=== PATIENT | female | born 1965 | race Caucasian/White ===

== ENCOUNTER → 2018-09-09 | Outpatient (CLI) | payer BC | LOC: MC.RAD 11:02 | DX: Z12.31 Encounter for screening mammogram for malignant neoplasm of breast (principal) ==

== ENCOUNTER 2019-07-11 09:01 | Emergency (ER) | payer BC ==
[~2019-07-11] VITALS: Ht 160 cm; Wt 52.3 kg
[2019-07-11 09:07] VITALS: TEMP 97.7
[2019-07-11 10:01] LABS: ALANINE AMINOTRANSFERASE 58 U/L (9-52); ALBUMIN 4.3 gm/dL (3.5-5.0); ALKALINE PHOSPHATASE 81 U/L (50-136); ANION GAP 9 mmol/L (7-16); AST,SGOT 58 U/L (15-37); BILIRUBIN,TOTAL 0.5 mg/dL (0.0-1.0); BLOOD UREA NITROGEN 8 mg/dL (7-17); CALCIUM 9.6 mg/dL (8.4-10.2); CARBON DIOXIDE 27 mmol/L (22-30); CHLORIDE 106 mmol/L (98-107); CREATINE KINASE 80 U/L (30-135); CREATININE, serum 0.73 (0.52-1.25); GLUCOSE 108 mg/dL (74-106); MAGNESIUM 2.1 mg/dL (1.6-2.3); PHOSPHOROUS 3.4 mg/dL (2.5-4.5); POTASSIUM 3.7 mmol/L (3.4-5.0); SODIUM 141 mmol/L (137-145); TOTAL PROTEIN 6.9 gm/dL (6.4-8.2)
[2019-07-11 10:06] LABS: BASO % 0.3 % (0.0-2.0); EOS # 0.1 (0.0-0.7); EOS % 0.8 % (0-4.0); GRAN # 4.4 (1.4-6.5); GRAN % 70.8 % (42.2-75.2); HEMATOCRIT 44.4 % (37.0-47.0); HEMOGLOBIN 15.3 g/dl (12.5-16.0); LYMPH # 1.2 (1.2-3.4); LYMPH % 19.9 % (20.0-51.0); MEAN CELL VOLUME 90 fl (80.0-100.0); MEAN CORPUSCULAR HEMOGLOBIN 31 pg (27.0-31.0); MEAN CORPUSCULAR HGB CONC 35 g/dl (33.0-37.0); MEAN PLATELET VOLUME 12.4 fl (7.4-10.4); MONO # 0.5 (0.1-0.6); MONO % 7.9 % (1.7-9.3); PLATELET COUNT 190 K/mm3 (130-400); RED BLOOD COUNT 4.92 M/mm3 (4.10-5.30); REDCELL DISTRIBUTION WIDTH-CV 11.6 % (11.5-14.5)
[2019-07-11 10:09] LABS: C-REACTIVE PROTEIN < 0.5 mg/dL (0.0-0.9)
[2019-07-11] MEDS ORDERED: FLEXERIL 1010 MG/TAB PO (11:27)
[2019-07-11 11:34] VITALS: BP 145/93; PULSE 72
== END 2019-07-11 11:41 | disposition home or self-care (01) ==
LOC: COL.ER 09:01
PROVIDERS: Emergency Medicine
DX: R20.0 Anesthesia of skin (principal); Z90.710 Acquired absence of both cervix and uterus; Z90.89 Acquired absence of other organs; Z90.49 Acquired absence of other specified parts of digestive tract
CPT/HCPCS: J7030

== ENCOUNTER → 2019-07-13 | Outpatient (CLI) | payer BC ==
[~2019-07-13] VITALS: Ht 160 cm; Wt 50.0 kg
[~2019-07-13] MED LIST: DOXYCYCLINE 10100 MG PO; ESTRACE 1MG1 MG/TAB PO; FLEXERIL 1010 MG/TAB PO; GAMMAGARD IV; NORVASC 5MG5 MG/TAB PO; PREDNISONE10 MG PO; VALTREX1 GM PO
[2019-07-13 18:00] VITALS: BP 141/80; PULSE 56; TEMP 97.8
--- NOTE | 2019-07-13 19:55 | NUR ---
infusion completed, here with pt, did not void, states feels about the same, iv d'cd with cath intact, discharged amb. with to car
== END ==
LOC: COL.ER 17:23 → EUO 17:24 → COL.ER 17:24 → EDSTATUS 17:31
DX: E86.0 Dehydration (principal)
CPT/HCPCS: J7120

== ENCOUNTER 2019-07-15 12:35 | Outpatient (CLI) | payer BC ==
[~2019-07-15] VITALS: Ht 160 cm; Wt 49.0 kg
[2019-07-15] VITALS (9 sets, daily range): BP systolic 132–152; BP diastolic 90–107; PULSE 68–96; TEMP 98.5
[~2019-07-15 12:35] MED LIST changes: -DOXYCYCLINE 10100 MG PO; -ESTRACE 1MG1 MG/TAB PO; -GAMMAGARD IV; -NORVASC 5MG5 MG/TAB PO; -PREDNISONE10 MG PO; -VALTREX1 GM PO
[2019-07-15] MEDS ORDERED: ESTRACE 1MG1 MG/TAB PO (13:04)
[2019-07-15] MEDS ORDERED: DOXYCYCLINE 10100 MG PO (13:05)
--- NOTE | 2019-07-15 13:45 | NUR ---
Pt to EU 11 per cart s/p LP. Pt resting well, mother at bedside.
[2019-07-15 14:59] LABS: GLUCOSE,CSF 71 mg/dL (40-70); TOTAL PROTEIN,CSF 87 mg/dL (15-45)
[2019-07-15 15:10] LABS: CSF APPEARANCE CLEAR; CSF COLOR COLORLESS; CSF MONONUCLEAR 100 % (70-100); CSF POLYMORPHONUCLEAR 0 % (0-6); CSF RBC 26 /mm3 (0-0)
--- NOTE | 2019-07-15 16:05 | NUR ---
Pt has voided and ruiz PO intake s n/v.
--- NOTE | 2019-07-15 16:15 | NUR ---
Pt discharged per w/c by nurse with mother.
[2019-07-18 10:18] LABS: ALBUMIN CSF 58.1 mg/dL (<=27.0)
[2019-07-18 10:25] LABS: CSF IGG/ALBUMIN 0.07 (<=0.21); CSF,IGG 4.1 mg/dL (<=8.1)
[2019-07-18 10:44] LABS: ALBUMUN SERUM 4450 mg/dL (()); CSF SYNTHESIS RATE 6.21 mg/24 h (<=12); CSF-IGG INDEX 0.64 (<=0.85); IGG,SERUM 476 mg/dL (()); IGG/ALBUMIN SERUM 0.11 (<=0.40)
[2019-07-18 15:37] LABS: CSF OLIG BD INTERPRETATION 0 bands (<4); CSF OLIGOCLONAL BANDING 0 bands (()); SE OLIGOCLONAL BANDING 0 bands (())
[2019-07-19 03:17] LABS: HSV 2 DNA PCR QUAL Negative
[2019-07-19 23:27] LABS: CYTOMEGALOVIRUS PCR Negative (Negative)
== END 2019-07-15 16:31 | disposition home or self-care (01) ==
LOC: COL.RAD 12:35
PROVIDERS: Psychiatry & Neurology Neurology
DX: G62.9 Polyneuropathy, unspecified (principal); G51.0 Bell's palsy

== ENCOUNTER 2019-07-20 15:00 | Inpatient (IN) | payer BC ==
--- NOTE | 2019-07-17 20:00 | NUR ---
Report received. Assumed care for hourly shift manager. Assessment complete. Noted to have elevted blood pressure. Denies pain. IVIG infusing @144 to Left AC 20g without difficulty. Neuro checks WNL. Plan of care discussed for this shift to include infusion and lab checks. Denies questions or concerns. States she would like to walk after infusion-spouse at bedside with plan to ambulate together. Denies questions or concerns at this time. Encouraged to call for needs. Call light in reach, bed in low/wheels locked. Will monitor.
[~2019-07-20] VITALS: Ht 162.6 cm; Wt 51.9 kg
[2019-07-20] VITALS (8 sets, daily range): BP systolic 149–154; BP diastolic 86–103; PULSE 71–83; TEMP 98.2–98.6
[~2019-07-20 15:00] MED LIST changes: +DOXYCYCLINE 10100 MG PO; +ESTRACE 1MG1 MG/TAB PO
[2019-07-20] MEDS ORDERED: PREDNISONE10 MG PO (17:49)
[2019-07-20] MEDS ORDERED: VALTREX1 GM PO (17:50)
--- NOTE | 2019-07-20 18:00 | NUR ---
Pt arrived to room 313 at this time. She is A/O x3. Her breathing is even and unlabored on RA. Pt denies SOB. No pain at this time. Pt currently denies tingling but has some numbness and increased weakness to BLE. Bilateral hands and feet equal, pt does have left sided facial droop. 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 IV 20G started to LAC, fluid bolus started at this time. POC discussed with patient who verbalizes understanding. No needs at this time. Call light within reach.
[2019-07-20 19:30] LABS: BASO % 0.1 % (0.0-2.0); GRAN # 6.2 (1.4-6.5); GRAN % 73.5 % (42.2-75.2); HEMATOCRIT 39.4 % (37.0-47.0); HEMOGLOBIN 13.9 g/dl (12.5-16.0); LYMPH # 1.2 (1.2-3.4); MEAN CELL VOLUME 89 fl (80.0-100.0); MEAN CORPUSCULAR HEMOGLOBIN 31 pg (27.0-31.0); MEAN CORPUSCULAR HGB CONC 35 g/dl (33.0-37.0); MEAN PLATELET VOLUME 13.1 fl (7.4-10.4); MONO % 11.9 % (1.7-9.3); PLATELET COUNT 184 K/mm3 (130-400); RED BLOOD COUNT 4.43 M/mm3 (4.10-5.30); REDCELL DISTRIBUTION WIDTH-CV 11.8 % (11.5-14.5)
[2019-07-20 19:38] LABS: CALCIUM 8.9 mg/dL (8.4-10.2); CREATININE, serum 0.54 (0.52-1.25); MAGNESIUM 2.2 mg/dL (1.6-2.3); POTASSIUM 3.3 mmol/L (3.4-5.0)
--- NOTE | 2019-07-20 20:00 | NUR ---
Shift assessment complete. Pt resting in bed, awake, a&o, cooperative c cares. Pt denies pain or other c/o at this time. Reports continued numbness/tingling to bilat hands et feet as well as generalized weakness. Facial paralysis noted to L side. IV patent. Pt denies needs. Call light in reach, will continue to monitor.
[2019-07-21] VITALS (15 sets, daily range): BP systolic 144–169; BP diastolic 90–98; PULSE 69–88; TEMP 97.8–98.8
--- NOTE | 2019-07-21 02:00 | NUR ---
IVIG infusion complete. VSS. No s/s reaction. Pt resting comfortably in bed, denies needs. Call light in reach, will continue to monitor.
[2019-07-21 06:13] LABS: BASO % 0.1 % (0.0-2.0); GRAN # 7.8 (1.4-6.5); GRAN % 78.2 % (42.2-75.2); HEMOGLOBIN 12.7 g/dl (12.5-16.0); LYMPH # 0.9 (1.2-3.4); LYMPH % 9.2 % (20.0-51.0); MEAN CELL VOLUME 90 fl (80.0-100.0); MEAN CORPUSCULAR HEMOGLOBIN 32 pg (27.0-31.0); MEAN CORPUSCULAR HGB CONC 36 g/dl (33.0-37.0); MEAN PLATELET VOLUME 13.1 fl (7.4-10.4); MONO # 1.1 (0.1-0.6); MONO % 11.4 % (1.7-9.3); PLATELET COUNT 155 K/mm3 (130-400); REDCELL DISTRIBUTION WIDTH-CV 11.7 % (11.5-14.5)
[2019-07-21 06:16] LABS: HEMATOCRIT 35.8 % (37.0-47.0)
[2019-07-21 06:33] LABS: CALCIUM 8.7 mg/dL (8.4-10.2); CREATININE, serum 0.6 (0.52-1.25); POTASSIUM 3.3 mmol/L (3.4-5.0)
[2019-07-21 06:59] LABS: C-REACTIVE PROTEIN 0.5 mg/dL (0.0-0.9)
--- NOTE | 2019-07-21 09:18 | NUR ---
Assessment completed, alert/oriented, vital stable/ still HTN, denies pain or dicomfort, states she is feeling better over all today, still feeling weak mostly in the lower extrmeties but is steady on her feet and working with PT/OT, still has some tingling in hands at times, still has some facial paralyiss that patient feels is improving, will get 2nd dose of IGg infusion this evening, heart RRR, K 3.3 and replacing per protocol, lungs CTA/ no res.difficulty reported, she is siting up eating breakfast and denies needs, will continue to monitory
--- NOTE | 2019-07-21 10:09 | NUR ---
SW met with the patient to discuss discharge planning. Patient lives in [place] with her , Joe (ph#[phone]). Patient sees Dr. Fabián Blanco for primary care. Patient reports independence with ADL's and does not have DME. Patient reports she has DPOA-HC completed but it is currently located at home. Patient states her plan is to return home upon discharge. No additional concerns at this time. HANNA will continue to follow.
--- NOTE | 2019-07-21 18:57 | NUR ---
patient is tolerating IGg infusion well, VSS, denies s/s of adverse reaction, will continue to monitor
--- NOTE | 2019-07-21 20:10 | NUR ---
Shift assessment complete. Pt resting in bed, awake, a&o, cooperative c cares. Pt denies c/o et reports improvement in symptoms since admit. Facial droop still noted to L side, much improved from admit. IV patent; IVIG infusing s complication. Pt denies needs. at bedside. Call light in reach, will continue to monitor.
[2019-07-22] VITALS (14 sets, daily range): BP systolic 151–164; BP diastolic 94–107; PULSE 72–87; TEMP 97.7–98.6
[2019-07-22 01:49] LABS: HIV 1 and 2 ANTIBODY SCRN-SO Negative (Negative)
--- NOTE | 2019-07-22 09:03 | NUR ---
Initial visit; Patient thankd Ditch Repairer for stopping and letting her know that there is spiritual care available at our hospital. Her Coding Clerks Supervisor has stopped by earlier.
[2019-07-22 09:13] LABS: BASO % 0.2 % (0.0-2.0); EOS # 0.1 (0.0-0.7); EOS % 0.9 % (0-4.0); GRAN # 3.7 (1.4-6.5); GRAN % 55.6 % (42.2-75.2); HEMATOCRIT 38.7 % (37.0-47.0); HEMOGLOBIN 13.7 g/dl (12.5-16.0); LYMPH # 1.9 (1.2-3.4); LYMPH % 28.7 % (20.0-51.0); MEAN CELL VOLUME 89 fl (80.0-100.0); MEAN CORPUSCULAR HEMOGLOBIN 32 pg (27.0-31.0); MEAN CORPUSCULAR HGB CONC 35 g/dl (33.0-37.0); MEAN PLATELET VOLUME 12.9 fl (7.4-10.4); MONO # 0.9 (0.1-0.6); MONO % 14.1 % (1.7-9.3); PLATELET COUNT 151 K/mm3 (130-400); RED BLOOD COUNT 4.33 M/mm3 (4.10-5.30); REDCELL DISTRIBUTION WIDTH-CV 11.6 % (11.5-14.5)
[2019-07-22 09:21] LABS: CREATININE, serum 0.64 (0.52-1.25)
[2019-07-22 09:33] LABS: POTASSIUM 2.9 mmol/L (3.4-5.0)
--- NOTE | 2019-07-22 10:43 | NUR ---
Pt assessment complete. Pt just finished with her shower, she is sitting up on the side of the bed. A/O x4. Her breathing is even and unlabored on RA. Pt denies SOB. No pain reported. Pt denies N/V. Reports her N/T has improved. Pt's left sided facial droop improved but still present. BUE and BLE executive meeting manager and strength equal. POC discussed with patient who verbalizes understanding. Call light within reach.
--- NOTE | 2019-07-22 15:00 | NUR ---
NIF DONE PER DR. RIVAS -20 CM H2O
[2019-07-22 15:28] LABS: ARTERIAL BLD GAS O2 SATURATION 97.9 % (92-100); ARTERIAL BLD GAS TCO2 CT 25.8; ARTERIAL BLOOD GAS BASE EXCESS 3.4 (-2-2); ARTERIAL BLOOD GAS HCO3 24.9 meq/L (22-26); ARTERIAL BLOOD GAS PCO2 29.2 mmHg (35-45); ARTERIAL BLOOD GAS PO2 99.1 mmHg (80-100); ARTERIAL BLOOD GAS pH 7.55 (7.35-7.45)
--- NOTE | 2019-07-22 15:45 | NUR ---
REPEAT NIF DONE PER DR. RIVAS -10CM H2O
--- NOTE | 2019-07-22 16:50 | NUR ---
PT REFUSED NIF DUE TO JUST BEING GIVEN BENADRYL, TOO SLEEPY. RN AWARE.
--- NOTE | 2019-07-22 17:00 | NUR ---
IV SoluMedrol and Benadryl staggered per patient request. Pt reports feeling off after the administration of both consecutively on Saturday. Pt anxious at this time. at bedside.
--- NOTE | 2019-07-22 17:10 | NUR ---
IV IgG started at this time. Signs and symptoms of reaction reviewed with patient. Vitals attained at this time. Will continue to monitor.
--- NOTE | 2019-07-22 17:55 | NUR ---
Rate increased to 36ml/hr at this time.
--- NOTE | 2019-07-22 19:15 | NUR ---
NIF: -10cm H20 pressure
--- NOTE | 2019-07-22 19:32 | NUR ---
Pt had uneventful day, she reports she feels better after the IgG infusion has begun. L side droop to face less prominent. BP remains high. POC discussed with patient she verbalizes understanding. Report given to KRISSY Wagner.
[2019-07-23] VITALS (10 sets, daily range): BP systolic 137–170; BP diastolic 88–103; PULSE 68–104; TEMP 97.8–98.6
--- NOTE | 2019-07-23 05:00 | NUR ---
Rested well later this shift. Neuro checks have been WNL. Blood pressure has been better as well. Tolerating diet. Denies shortness of breath. Voiding without difficulty. Denies needs. Call light in reach. Will monitor.
[2019-07-23 06:05] LABS: ARTERIAL BLOOD GAS BASE EXCESS 1.1 (-2-2); ARTERIAL BLOOD GAS PO2 96.7 mmHg (80-100); ARTERIAL BLOOD GAS pH 7.48 (7.35-7.45)
[2019-07-23 07:57] LABS: CREATININE, serum 0.62 (0.52-1.25); POTASSIUM 3.5 mmol/L (3.4-5.0)
[2019-07-23 09:41] LABS: RPR (VDRL) XXX
--- NOTE | 2019-07-23 09:44 | NUR ---
Assessment completed, alert/oriented, vital sign stable, denies pain or discomfort, reports feeling better overall/ feels weakness is improving/ left facial paralysis is minimal at this point, lungs CTA/ denies any resp.difficulty, is following/ CXR this morning, PH is improved, we are continuing daily spirometry measurements, she denies other needs at this time
[2019-07-23 10:00] LABS: EOS % 0.4 % (0-4.0); GRAN # 4.1 (1.4-6.5); GRAN % 57.9 % (42.2-75.2); HEMATOCRIT 38.4 % (37.0-47.0); HEMOGLOBIN 13.4 g/dl (12.5-16.0); LYMPH # 1.8 (1.2-3.4); LYMPH % 24.9 % (20.0-51.0); MEAN CELL VOLUME 90 fl (80.0-100.0); MEAN CORPUSCULAR HEMOGLOBIN 31 pg (27.0-31.0); MEAN CORPUSCULAR HGB CONC 35 g/dl (33.0-37.0); MEAN PLATELET VOLUME 12.6 fl (7.4-10.4); MONO # 1.1 (0.1-0.6); MONO % 15.9 % (1.7-9.3); PLATELET COUNT 162 K/mm3 (130-400); RED BLOOD COUNT 4.27 M/mm3 (4.10-5.30); REDCELL DISTRIBUTION WIDTH-CV 11.6 % (11.5-14.5)
[2019-07-23 10:14] LABS: LYME DISEASE ANTIBODIES Negative (Negative)
[2019-07-23 10:23] LABS: CALCIUM 8.9 mg/dL (8.4-10.2); CREATININE, serum 0.62 (0.52-1.25); POTASSIUM 3.2 mmol/L (3.4-5.0)
--- NOTE | 2019-07-23 17:00 | NUR ---
Patient tolerated IV IGg failry well, she stated the steroids and benadry that we pre-treat with make her feel "weird", vitals stable and unchanged/ continue to have HTN and we have given Apresoline and this did not make any change to BP at all, I have notified / she came and spoke with patient and fmaily and we are giving a dose of Norvasc this evening to see if htis will help at all
[2019-07-23 17:17] LABS: CADMIUM BLOOD 0.2 ng/mL (0.0-4.9); LEAD,SERUM** <1.0 mcg/dL (0.0-4.9); MERCURY,SERUM <1 ng/mL (0-9)
--- NOTE | 2019-07-23 21:00 | NUR ---
Shift assessment complete. Patient in bed, awake. Denies pain. Stated she had a headache earlier and wasn't sure if it was related to the IVIG dose given at a faster rate this afternoon. Will notify day shift to slow down rate for dose tomorrow. Patient agreed with plan. Denies further needs at this time. Will continue to monitor.
[2019-07-24] VITALS (11 sets, daily range): BP systolic 143–158; BP diastolic 89–102; PULSE 89–98; TEMP 98.8–99.1
--- NOTE | 2019-07-24 03:48 | NUR ---
Patient in bed, resting. Denies pain. VS stable. Denies further needs at this time. Will continue to monitor.
[2019-07-24 06:10] LABS: BASO % 0.1 % (0.0-2.0); EOS # 0.1 (0.0-0.7); EOS % 0.8 % (0-4.0); GRAN # 4.8 (1.4-6.5); GRAN % 56.6 % (42.2-75.2); HEMATOCRIT 39.6 % (37.0-47.0); HEMOGLOBIN 14.1 g/dl (12.5-16.0); LYMPH # 2.2 (1.2-3.4); LYMPH % 25.2 % (20.0-51.0); MEAN CELL VOLUME 88 fl (80.0-100.0); MEAN CORPUSCULAR HEMOGLOBIN 32 pg (27.0-31.0); MEAN CORPUSCULAR HGB CONC 36 g/dl (33.0-37.0); MEAN PLATELET VOLUME 12.6 fl (7.4-10.4); MONO # 1.4 (0.1-0.6); MONO % 16.6 % (1.7-9.3); PLATELET COUNT 186 K/mm3 (130-400); RED BLOOD COUNT 4.48 M/mm3 (4.10-5.30); REDCELL DISTRIBUTION WIDTH-CV 11.6 % (11.5-14.5)
[2019-07-24 06:21] LABS: CALCIUM 9.1 mg/dL (8.4-10.2); CREATININE, serum 0.63 (0.52-1.25); MAGNESIUM 2.1 mg/dL (1.6-2.3); POTASSIUM 3.6 mmol/L (3.4-5.0)
--- NOTE | 2019-07-24 07:38 | NUR ---
NIF: -10 CM H20 pressure
--- NOTE | 2019-07-24 07:47 | NUR ---
Patient is awake and alert, was oberved ambulating in hallway. Did call for staff stating she was having a headache and would like PRN ibuprofen. This was administered, she stated she was feeling like the headache felt as if it could be sinus related. She is noted to have trembling in her hands as she takes her medications. INT has been covered for patient to shower. She is due to have potassium per protocol, requests tablets in place of effervescent. Did call pharmacy and will be changed. No further needs identified at this time.
[2019-07-24] MEDS ORDERED: NORVASC 5MG5 MG/TAB PO (10:08)
[2019-07-24] MEDS ORDERED: GAMMAGARD IV (10:16)
--- NOTE | 2019-07-24 10:29 | NUR ---
The patient is to discharge back home with her today, 07/24. SW met with the patient to review discharge plan and to discuss OT's recommendation of may benefiting from outpatient OT. The patient reports that it was decided that she would not need OT. She states that she has a script for outpatient PT and plans to go to [place] for the outpatient PT. The patient had no other questions or concerns for SW. No additional needs at this time.
--- NOTE | 2019-07-24 11:02 | NUR ---
NIF: -10 CM H20 PRESSURE
--- NOTE | 2019-07-24 18:12 | NUR ---
Discharge instructions reviewed with patient and her . Personal belongings gathered. Was assisted to private vehicle via wheelchair.
== END 2019-07-24 16:40 | disposition home or self-care (01) | DRG 95 ==
LOC: MEDICAL 15:00
PROVIDERS: Family Medicine; Psychiatry & Neurology Neurology; ADMIT Internal Medicine
DX: G61.0 Guillain-Barre syndrome (principal); E87.3 Alkalosis; G51.0 Bell's palsy; I10 Essential (primary) hypertension; R53.81 Other malaise; E87.6 Hypokalemia; Z90.711 Acquired absence of uterus with remaining cervical stump; Z85.828 Personal history of other malignant neoplasm of skin
CPT/HCPCS: 99223-AI; 99232-AI; 99239; A9284; A9585; J0360; J1200; J1569; J1650; J2920; J7030

== ENCOUNTER → 2019-12-14 | Outpatient (CLI) | payer BC ==
[~2019-12-14] MED LIST changes: +GAMMAGARD IV; +NORVASC 5MG5 MG/TAB PO; +PREDNISONE10 MG PO; +VALTREX1 GM PO
== END ==
LOC: MC.RAD 13:23
DX: Z12.31 Encounter for screening mammogram for malignant neoplasm of breast (principal)

== ENCOUNTER → 2020-04-07 | Outpatient (CLI) | payer BC | LOC: ZCOL.LAB 14:30 | DX: Z20.828 Contact with and (suspected) exposure to other viral communicable diseases (principal) ==

== ENCOUNTER → 2020-12-14 | Outpatient (CLI) | payer BC | LOC: MC.RAD | DX: Z12.31 Encounter for screening mammogram for malignant neoplasm of breast (principal) ==

== ENCOUNTER → 2022-01-17 | Outpatient (CLI) | payer BC | LOC: MC.RAD 13:14 | DX: Z12.31 Encounter for screening mammogram for malignant neoplasm of breast (principal) ==

== ENCOUNTER → 2024-04-21 | Outpatient (CLI) | payer BC | LOC: MC.RAD 09:58 | DX: Z12.31 Encounter for screening mammogram for malignant neoplasm of breast (principal) ==